=== PATIENT | male | born 1980 | race Caucasian/White ===

== ENCOUNTER → 2017-12-29 14:51 | Outpatient (CLI) | payer OTHER, SELFPAY ==
--- NOTE | 2017-12-29 | DI.RAD.S_ITS ---
PROCEDURE: XR CERVICAL SPINE 2V OR 3V INDICATIONS: PAIN C4-C7 TECHNIQUE: 3 view(s) of the cervical spine were acquired. COMPARISON: [facility], MR, C-SPINE W&WO CONTRAST, 03/31/2016, 10:02. [facility], MR, C-SPINE WITHOUT CONTRAST, 05/23/2015, 13:58. FINDINGS: Bones: No fractures or dislocations to the T1 level. The lateral masses of C1 appear intact on the odontoid view. There is straightening of cervical curvature. No suspicious bony lesions. There is discectomy and a disc prosthesis at C5-C6. Soft tissues: No prevertebral soft tissue swelling. IMPRESSION: 1. Disc prosthesis at C5-C6. 2. Straightening of cervical curvature. Dictated by: Mateo Domínguez M.D. on 12/29/2017 at 15:59 Approved by: Mateo Domínguez M.D. on 12/29/2017 at 16:04
== END ==
PROVIDERS: PCP Family Medicine; Visit Provider Family Medicine
DX: M54.2 Cervicalgia (principal)
CPT/HCPCS: 72040

== ENCOUNTER → 2019-03-09 16:10 | Outpatient (CLI) | payer OTHER, SELFPAY ==
--- NOTE | 2019-03-09 | DI.RAD.S_ITS ---
PROCEDURE: XR SHOULDER RT MIN 2V INDICATIONS: RIGHT SHOULDER STRAIN/TRAUMA TECHNIQUE: 3 views of the shoulder were acquired. COMPARISON: [facility], , SHOULDER MINIMUM 2VIEW RIGHT, 04/02/2015, 17:09. FINDINGS: Bones: Again noted is prior distal clavicle resection. Mild osteophytic changes in glenohumeral joint is seen. No fractures or dislocations. No suspicious bony lesions. Visualized ribs appear intact. Soft tissues: No suspicious soft tissue calcifications. IMPRESSION: Mild glenohumeral joint osteophytes. Prior distal clavicle resection. No shoulder fracture or dislocation. No gross soft tissue abnormality. Dictated by: Aamir Chatterjee M.D. on 03/09/2019 at 16:44 Approved by: Aamir Chatterjee M.D. on 03/09/2019 at 16:44
== END ==
PROVIDERS: PCP Family Medicine; Visit Provider Family Medicine
DX: S46.911A Strain of unspecified muscle, fascia and tendon at shoulder and upper arm level, right arm, initial encounter (principal); M25.711 Osteophyte, right shoulder
CPT/HCPCS: 73030

== ENCOUNTER → 2021-05-20 13:53 | Outpatient (CLI) | payer OTHER, SELFPAY ==
--- NOTE | 2021-05-20 13:55 | DI.MRI.S_ITS ---
PROCEDURE: MR ANKLE LT WO CON INDICATIONS: Peroneal tendinitis, unspecified leg TECHNIQUE: Noncontrast sagittal T1 spin echo and T2 fast spin echo with fat saturation, axial proton density fast spin echo and T2 fast spin echo with fat saturation, coronal T1 spin echo and T2 fast spin echo with fat saturation through the ankle/hindfoot. COMPARISON: None. FINDINGS: Image quality: Excellent. Bones and joints: There is moderate osseous edema at the medial aspect of the talus extending to the medial talar dome that most likely represents a resent osteochondral lesion on versus impaction trabecular bone injury. Focal cartilage irregularity is seen with mild irregularity of the subchondral plate measuring approximately 3 x 3 mm. No loose osteochondral fragment is seen. The remaining osseous structures are intact. A small ganglion cyst is seen dorsal to the navicular cuneiform articulations measuring 7 x 4 x 4 mm. Medial structures: The deep and superficial layers of the deltoid ligament appear intact. The spring ligament components are intact. A small amount of fluid is seen surrounding the distal posterior tibialis tendon, consistent with mild tenosynovitis. The flexor digitorum longus and flexor hallucis longus tendons are intact. The posterior tibial neurovascular bundle appears normal within the tarsal tunnel, without extrinsic mass effect. Lateral structures: Thickening of the anterior talofibular ligament in the calcaneofibular ligament is consistent with prior sprains. The posterior talofibular ligament is intact. The anterior and posterior tibiofibular ligaments appear intact. The peroneus longus and brevis tendons demonstrate normal location and morphology. A small ganglion cyst is seen arising from the lateral sinus tarsi measuring approximately 12 x 8 x 7 mm. Anterior structures: The tibialis anterior, extensor hallucis longus, and extensor digitorum longus tendons appear intact. The dorsal talonavicular ligament appears intact. Posterior and plantar structures: Achilles tendon is intact. Medial and lateral bands of the plantar fascia are of normal thickness. No abductor digiti quinti muscle atrophy to suggest Leija neuropathy. IMPRESSION: 1. Probable small osteochondral lesion at the medial talar dome measuring 3 x 3 mm with focal cartilage loss and mild irregularity of the subchondral plate. There is moderate trabecular bone injury throughout the adjacent portion of the posterior medial talus. No loose osteochondral fragment is seen. 2. Mild posterior tibialis tenosynovitis. 3. Chronic low-grade sprains of the anterior talofibular ligament and calcaneofibular ligament. 4. Small 7 mm ganglion cyst dorsal to the talonavicular ligament. An additional 12 mm ganglion cyst is seen arising from the lateral sinus tarsi. Dictated by: Valentin Fox M.D. on 05/20/2021 at 15:32 Approved by: Valentin Fox M.D. on 05/20/2021 at 15:41
== END ==
PROVIDERS: PCP Family Medicine; Referring Provider Family Medicine; Visit Provider Family Medicine
DX: M76.72 Peroneal tendinitis, left leg (principal); S93.412A Sprain of calcaneofibular ligament of left ankle, initial encounter; S93.492A Sprain of other ligament of left ankle, initial encounter; M65.872 Other synovitis and tenosynovitis, left ankle and foot; M67.472 Ganglion, left ankle and foot
CPT/HCPCS: 73721

== ENCOUNTER → 2021-10-14 13:44 | Outpatient (CLI) | payer OTHER, SELFPAY ==
--- NOTE | 2021-10-14 | DI.MRI.S_ITS ---
PROCEDURE: MR SHOULDER LT WO CON INDICATIONS: ROTATOR CUFF STRAIN TECHNIQUE: Noncontrast oblique coronal T2 fast spin echo with fat saturation, oblique sagittal T1 spin echo and T2 fast spin echo with fat saturation, axial T1 spin echo and T2 fast spin echo with fat saturation through the shoulder. COMPARISON: [facility], MR, SHOULDER WITHOUT CONTRAST, 05/23/2015, 13:38. FINDINGS: Image quality: Excellent. Rotator cuff: The supraspinatus, infraspinatus, and subscapularis tendons appear intact throughout. Sagittal images demonstrate no muscle atrophy. Bones and bursae: No bone marrow contusions or fractures. Moderate acromioclavicular joint degeneration. The acromion demonstrates conventional anatomy, without an os acromiale. A small amount of subacromial-subdeltoid or subcoracoid bursal fluid is present. Capsule and soft tissues: There is undercutting of the posterior labrum. The long head of the biceps tendon demonstrates normal location and morphology. The rotator interval appears normal, without fibrosis. The coracohumeral ligament is normal in thickness. IMPRESSION: 1. No rotator cuff tear. 2. Acromioclavicular joint osteoarthritis. 3. Subacromial bursitis. 4. Possible posterior labral tearing. Dictated by: Christiano Day M.D. on 10/14/2021 at 15:09 Approved by: Christiano Day M.D. on 10/14/2021 at 15:10
== END ==
PROVIDERS: PCP Family Medicine; Referring Provider Family Medicine; Visit Provider Family Medicine
DX: S46.012A Strain of muscle(s) and tendon(s) of the rotator cuff of left shoulder, initial encounter (principal); M19.012 Primary osteoarthritis, left shoulder; M75.52 Bursitis of left shoulder; X58.XXXA Exposure to other specified factors, initial encounter
CPT/HCPCS: 73221

== ENCOUNTER → 2022-11-28 11:50 | Outpatient (CLI) | payer OTHER, SELFPAY ==
--- NOTE | 2022-11-28 | DI.MRI.S_ITS ---
PROCEDURE: MR SHOULDER RT WO CON INDICATIONS: RIGHT SHOULDER PAIN TECHNIQUE: Noncontrast oblique coronal T2 fast spin echo with fat saturation, oblique sagittal T1 spin echo and T2 fast spin echo with fat saturation, axial T1 spin echo and T2 fast spin echo with fat saturation through the shoulder. COMPARISON: [facility], CR, SHOULDER 1 VIEW RIGHT, 09/06/2008, 14:32. [facility], RF, SHOULDER INJECTION FOR MR/CT, 01/28/2013, 13:28. [facility], MR, SHOULDER WITH CONTRAST, 01/28/2013, 13:52. [facility], CR, SHOULDER MINIMUM 2VIEW RIGHT, 04/02/2015, 17:09. [facility], , XR SHOULDER RT MIN 2V, 03/09/2019, 16:21. [facility], MR, SHOULDER WITHOUT CONTRAST, 05/23/2015, 13:38. FINDINGS: Image quality: Excellent. Rotator cuff: There is partial-thickness tear of the supraspinatus tendon along both bursal and articular surfaces. There is mild infraspinatus and subscapularis tendinosis. Sagittal images demonstrate no rotator cuff muscle atrophy. Bones and bursae: No bone marrow contusions or fractures. Small chronic Hill-Sachs deformity in the posterior humeral head. Postsurgical changes in the distal clavicle and acromion. There is moderate glenohumeral joint degeneration. There is a small glenohumeral joint effusion Capsule and soft tissues: Chronic superior and anterior labral tear. The long head of the biceps tendon demonstrates normal location and morphology. The rotator interval appears normal, without fibrosis. The coracohumeral ligament is normal in thickness. IMPRESSION: 1. Partial-thickness tear of the supraspinatus tendon. 2. Mild infraspinatus and subscapularis tendinosis. 3. Postsurgical changes in the distal clavicle and acromion at the acromioclavicular joint. 4. Moderate glenohumeral joint degeneration. 5. Chronic superior and anterior labral tear. 6. Chronic small Hill-Sachs deformity in humeral head in keeping with remote history of shoulder dislocation. 7. Small glenohumeral joint effusion. Dictated by: Mateo Domínguez M.D. on 11/28/2022 at 12:48 Approved by: Mateo Domínguez M.D. on 11/28/2022 at 13:03
== END ==
PROVIDERS: PCP Family Medicine; Referring Provider Family Medicine; Visit Provider Family Medicine
DX: M75.111 Incomplete rotator cuff tear or rupture of right shoulder, not specified as traumatic (principal); M25.511 Pain in right shoulder
CPT/HCPCS: 73221